=== PATIENT | female | born 1965 | race African-American/Black ===

== ENCOUNTER 2017-01-28 19:34 | Emergency (ER) | payer OTHER ==
[~2017-01-28] VITALS: Ht 167.6 cm; Wt 163.8 kg
--- NOTE | ~2017-01-28 | EKG ---
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 : 1965 Requested By: Emil Boyd Order Number: [id number] MD: Elton Hanna Measurements Intervals [place] Rate: 100 P: 53 MA: 170 QRS: 111 QRSD: 96 T: -45 QT: 364 QTc: 470 Interpretive Statements Sinus tachycardia Left atrial enlargement Right axis deviation Nonspecific T wave abnormality Artifact in lead(s) I,II,III,aVR,aVL,aVF Compared to ECG 04/07/2014 03:33:43 Right-axis deviation now present T-wave abnormality now present Electronically Signed On 01-29-2017 9:24:17 CDT by Elton Hanna [email or web address] <ELECTRONICALLY SIGNED> By: Elton Hanna MD, FAC 01/29/17 0924 50 50 Elton Hanna MD, [facility] /EPI
[~2017-01-28 19:34] MED LIST: ASPIR-TRIN325 MG PO; ATIVAN0.5 MG PO; BUSPIRONE HCL10 MG PO; FORTAMET500 MG; GLUCOPHAGE850 MG PO; LIPITOR40 MG PO; LISINOPRIL10 MG PO; LOPRESSOR25 PO; LORAZEPAM 1 MG T1 M1; NOHOMEMEDICATIONS; RISPERDAL 1 MG T1 MG; RISPERDAL2 MG PO
[2017-01-28] MEDS ORDERED: NOVOLOG100 UNIT/1 SUBQ (19:53)
[2017-01-28 20:06] LABS: ABSOLUTE NEUTROPHILS 5.1 thou/uL (1.4-8.2); BASOPHILS 0.5 % (0.0-2.0); HEMATOCRIT 46.4 % (37.0-47.0); HEMOGLOBIN 14.9 gm/dL (12.0-15.0); LYMPHOCYTES 18.2 % (24.0-44.0); MCH 28.2 pg (26.0-34.0); MCHC 32.1 g/dL (28.0-37.0); MCV 87.9 fL (80.0-100.0); MONOCYTES 8.8 % (1.0-8.0); PLATELET COUNT 187 thou/uL (150-400); POLYS 71.5 % (36.0-66.0); RBC 5.29 mil/uL (4.20-5.00); RDW 15.2 % (10.5-14.5); WBC 7.1 thou/uL (4.0-11.0)
[2017-01-28 20:11] LABS: CREATININE 1.5 mg/dL (0.6-1.0); POTASSIUM 4.6 mmol/L (3.5-5.1)
[2017-01-28 20:13] LABS: MANUAL DIFF NO
[2017-01-28 20:19] LABS: ALBUMIN 2.7 g/dL (3.4-5.0); TOTAL BILIRUBIN 0.5 mg/dL (<0.1-1.0)
== END 2017-01-28 21:19 | disposition home or self-care (01) ==
LOC: ER 19:34
PROVIDERS: Physician Assistant
DX: S93.402A Sprain of unspecified ligament of left ankle, initial encounter (principal); N28.9 Disorder of kidney and ureter, unspecified; E11.9 Type 2 diabetes mellitus without complications; F20.9 Schizophrenia, unspecified; Z79.4 Long term (current) use of insulin; W01.0XXA Fall on same level from slipping, tripping and stumbling without subsequent striking against object, initial encounter; Y93.89 Activity, other specified; Y92.89 Other specified places as the place of occurrence of the external cause; Y99.8 Other external cause status